=== PATIENT | female | born 1955 | race Caucasian/White ===

== ENCOUNTER 2020-05-10 13:42 | Outpatient (CLI) | payer MEDICARE, SELFPAY ==
--- NOTE | ~2020-05-10 | MM_ITS ---
EXAMINATION: MM screening kizzy BI w greg HISTORY: Screening TECHNIQUE: Craniocaudal and mediolateral oblique 3-D tomosynthesis images were obtained and synthetic 2-D images were generated. CAD analysis was submitted and interpreted. COMPARISON: Comparison to multiple prior studies sequentially, with oldest reviewed study dated 10/04 with. BREAST PARENCHYMAL COMPOSITION: There are scattered areas of fibroglandular density. FINDINGS: There is no evidence of suspicious mass, calcification, or architectural distortion to sugg est malignancy in either breast. There has been no suspicious interval change. IMPRESSION: 1. No mammographic evidence of malignancy. 2. Recommend routine screening mammography in one year. BI-RADS Category 1: Negative Reviewed, dictated and finalized at location A. ESSOR OF COUNSELING
--- NOTE | ~2020-05-10 | DEXA_ITS ---
Bone Density Report Name: Marlene Gracia Age: 64 Sex: Female Ethnicity: White Date of : 1955 Indication: osteopenia; parental hip fracture; height loss; Referring Provider: Casie Canchola Study: Bone densitometry was performed. Exam Date: May 10, 2020 Accession number: [id number] Bone Density: Region BMD T-score Z-score Classification AP Spine (L1-L4) 0.868 -1.6 0.3 Osteopenia Femoral Neck (Left) 0.738 -1.0 0.6 Normal Total Hip (Left) 0.852 -0.7 0.6 Normal Total Hip Bilateral Avg 0.832 -0.9 0.5 Normal Femoral Neck (Right) 0.676 -1.6 0.1 Osteopenia Total Hip (Right) 0.812 -1.1 0.3 Osteopenia World Health Organization criteria for BMD impression classify patients as: Normal (T-score at or above -1.0), Osteopenia (T-score between -1.0 and -2.5), or Osteoporosis (T-score at or below -2.5). 10-year Fracture Risk(1): Major Osteoporotic Fracture 17% Hip Fracture 1.6% Reported Risk Factors: [place] (), Neck BMD=0.676, BMI=25.8, parental fracture (1) FRAX(R) Version 3.08. Fracture probability calculated for an untreated patient. Fracture probability may be lower if the patient has received treatment. Previous Exams: Region Exam Age BMD T-score BMD Change BMD Change Date g/cm2 vs Baseline vs Previous AP Spine(L1-L4) 05/10/2020 64 0.868 -1.6 -0.091(-9.5%)# 0.059(7.3%)* 06/29/2014 59 0.808 -2.2 -0.150(-15.7%) -0.003(-0.4%)# 07/18/2009 54 0.812 -2.1 -0.147(-15.3%) -0.147(-15.3%) 01/15/2006 50 0.959 -0.8 Total Hip(Left) 05/10/2020 64 0.852 -0.7 -0.069(-7.5%)# -0.020(-2.2%) 06/29/2014 59 0.871 -0.6 -0.049(-5.3%)# 0.003(0.3%)# 07/18/2009 54 0.869 -0.6 -0.052(-5.6%)* -0.052(-5.6%)* 01/15/2006 50 0.920 -0.2 Total Hip(Right) 05/10/2020 64 0.812 -1.1 -0.100(-10.9%) -0.020(-2.4%) 06/29/2014 59 0.833 -0.9 -0.079(-8.7%)# -0.019(-2.3%)# 07/18/2009 54 0.852 -0.7 -0.060(-6.6%)* -0.060(-6.6%)* 01/15/2006 50 0.912 -0.2 *Denotes significance at 95% confidence level, LSC for AP Spine = 0.022 g/cm2, LSC for Total Hip = 0.027 g/cm2 Clinical Information Provided by Patient: Parent has had a hip fracture Has used the following medications: Vitamin D, Calcium Patient maximum height was 67 Menopause Age: 50 Drinks caffeinated beverages Onset of menses at age 12 Number of children 4 Impression: The patient has low bone mass, based on the Total Spine T-score. The pat
== END 2020-05-10 13:43 | disposition home or self-care (01) ==
LOC: ANHIMG 13:46
PROVIDERS: PCP Family Medicine; Visit Provider Family Medicine
DX: Z12.31 Encounter for screening mammogram for malignant neoplasm of breast (principal); Z78.0 Asymptomatic menopausal state; M85.89 Other specified disorders of bone density and structure, multiple sites
CPT/HCPCS: 77063; 77067; 77080

== ENCOUNTER → 2020-10-30 13:21 | Outpatient (CLI) | payer MEDICARE, SELFPAY ==
--- NOTE | ~2020-10-30 | XR_ITS ---
XR hand LT min 3V DATE: 10/30/2020 13:53 INDICATION: Hand pain TECHNIQUE: 3 views COMPARISON: None FINDINGS: Diffuse osteopenia. There is periarticular osteoarthritis including joint space narrowing at the triscaphe joint, promine nt hypertrophic osteoarthritic change at the first carpometacarpal joint and mild osteoarthritis invo lving the interphalangeal joints. IMPRESSION: Polyarticular osteoarthritis Osteopenia Reviewed, dictated and finalized at location A.
--- NOTE | ~2020-10-30 | XR_ITS ---
XR hand RT min 3V DATE: 10/30/2020 13:53 INDICATION: Right hand pain TECHNIQUE: 3 views COMPARISON: None FINDINGS: Diffuse osteopenia. Polyarticular osteoarthritis, including triscaphe joint, particularly the first carpometacarpal joint , in addition to the first metacarpophalangeal and multiple interphalangeal joints. No fracture or dislocation, periosteal reaction or bone destruction. IMPRESSION: Polyarticular osteoarthritis Osteopenia Reviewed, dictated and finalized at location A.
== END ==
PROVIDERS: PCP Family Medicine; Visit Provider Family Medicine
DX: M18.0 Bilateral primary osteoarthritis of first carpometacarpal joints (principal); M19.042 Primary osteoarthritis, left hand; M19.041 Primary osteoarthritis, right hand
CPT/HCPCS: 73130

== ENCOUNTER 2020-12-16 18:38 | Emergency (ER) | payer MEDICARE, SELFPAY ==
[2020-12-16 18:46] VITALS: BP 137/74; PULSE 82; RESP 16; TEMP 37; O2SAT 98
--- NOTE | 2020-12-16 18:56 | ED.URI ---
HPI - URI/Sore Throat General Chief Complaint: Upper Respiratory Infection Stated Complaint: sore throat Time Seen by Provider: 12/16/20 18:52 Source: patient, RN notes reviewed and old records reviewed Mode of arrival: ambulatory Limitations: no limitations History of Present Illness HPI Narrative: 65 year old female who presents to [facility] care with complaints of sore throat and hoarseness for the past 4- 5 days. She states that she has a scratchy throat and discomfort with swallowing. Patient reports no ear pain or any noted cough, denies any facial pressure or headache. Patient states that she had a fever one night earlier in the week of 100.8 but has had no fever since. Patient states that she has been taking Advil but has not been taking any antihistamines or decongestants. MD elicited complaint: sore throat and other (hoarseness) Exacerbating factors: swallowing Relieving factors: NSAID Associated symptoms: fever, rhinorrhea and sore throat Treatments prior to arrival: ibuprofen Related Data Allergies Allergy/AdvReac Type Severity Reaction Status Date / Time No Known Allergies Allergy Mild Verified 10/06/20 14:36 Review of Systems Review of Systems: Narrative: CONSTITUTIONAL: Denies fever, chills, or sweats presently, one evening of fever of 100.8F early in week none since EYES: Denies visual changes, redness, or discharge. ENT: Positive for rhinorrhea,sinus congestion, sore throat, no otalgia,hoarseness CARDIOVASCULAR: Denies chest pain, palpitations, or edema. RESPIRATORY: Denies cough or dyspnea. GASTROINTESTINAL: Denies abdominal pain, nausea, vomiting, or diarrhea. GENITOURINARY: Denies dysuria or hematuria. SKIN: Denies rash or itching. MUSCULOSKELETAL: Denies back pain, joint pain, or myalgia. NEUROLOGIC: Denies headache, numbness, or weakness. PSYCHIATRIC: Denies anxiety or depression. All systems reviewed & are unremarkable except as noted in HPI and below PMFSH Past Medical History Medical History (Updated 12/16/20 @ 19:37 by Marlene Christensen NP) Elevated cholesterol Hepatitis C antibody test negative (11/29/16) History of screening mammography (~04/17/12) Hypertension Normal colonoscopy (~03/29/09) Surgical History Surgical History History of tonsillectomy Family History Family History Mother Hypertension Family history of elevated blood lipids Father Family history of elevated blood lipids Grandparent Cerebrovascular accident Family history of lung cancer Social History Social History (Updated 12/16/20 @ 19:19 by Marlene Christensen NP) Smoking status: Never smoker Alcohol intake: current Substance use: never Living arrangements: with family Gender identity (if verbalized by the patient): Female Comments At time of signature, agree with nursing past medical, surgical, social and family history. There is no relevant family history pertinent to the presenting complaint Exam Narrative: Exam Narrative: GENERAL: Well-appearing, well-nourished, and in no acute distress. HEAD: Normocephalic, atraumatic. EYES: PERRLA and EOMI. ENT: Nares mild redness with clear rhinorrhea no epistaxis. Mucous membranes moist.TM's normal with good light reflex, Throat mild redness with no lesions or exudates, no tonsils. post nasal drainage noted. NECK: Supple. no lymphadenopathy CHEST: Clear to auscultation. No respiratory distress. no cough SAO2 98% on room air HEART: Regular rate and rhythm. No murmur heard. Normal peripheral pulses. ABDOMEN: Soft, nontender, nondistended, normal active bowel sounds. EXTREMITIES: Normal range of motion. No edema. SKIN: Warm, dry, no rash. NEURO: No focal deficits. Alert and oriented x3. Course Vital Signs Vital signs: Vital Signs Temperature 37.0 C 12/16/20 18:46 Pulse Rate 82 12/16/20 18:46 Respiratory Rate 16 12/16/20 18:46 Blood Pressu
== END 2020-12-16 19:15 | disposition home or self-care (01) ==
PROVIDERS: Emergency Provider Registered Nurse; PCP Family Medicine
DX: J06.9 Acute upper respiratory infection, unspecified (principal); J02.9 Acute pharyngitis, unspecified; E78.00 Pure hypercholesterolemia, unspecified; I10 Essential (primary) hypertension
CPT/HCPCS: 87081; 87880; 99213; G0463

== ENCOUNTER → 2022-06-14 10:51 | Outpatient (CLI) | payer MEDICARE, SELFPAY ==
--- NOTE | ~2022-06-14 | XR_ITS ---
Left Knee Technique: AP, lateral, not, and sunrise views were obtained. Clinical History: Pain Findings: No fracture or dislocation is seen. Osseous alignment is anatomic. Moderate osteophyte form ation noted at the medial joint line. Minimal patellar and lateral joint line spurring noted. Soft ti ssues are unremarkable. No joint effusion is seen. Impression: Mild degenerative change of the knee, as detailed above. Reviewed, dictated and finalized at location M. CTOR OF STUDENT LIFE Impression: Mild degenerative change of the knee, as detailed above.
== END ==
PROVIDERS: PCP Nurse Practitioner; Visit Provider Nurse Practitioner
DX: M25.562 Pain in left knee (principal); R93.6 Abnormal findings on diagnostic imaging of limbs
CPT/HCPCS: 73564

== ENCOUNTER 2022-09-03 08:00 | Outpatient (RCR) | payer MEDICARE, SELFPAY ==
--- NOTE | 2022-07-11 18:52 | PTOPEVAL1 ---
Assessment and note entered by Jonathan Nowak, PT Evaluation Information Assessment Status Evaluation Diagnosis Pain in L knee Onset for over a month Subjective Information Patient reports she has been having L knee joint stating it is burning. Patient is having trouble with going up and down stairs and sleeping. Pain is also worst in the AM after being immobile for awhile and as she moves it feels better. Pain is non radiating. She reports she is active playing pickleball, is an active walker and does aerobics at the [facility]. Clinical Summary Marlene is a 67 year old female coming into the clinic for L knee pain. She has decreased knee range of motion and weaker quads compared to the R knee along with TONI hamstring tightness. Patient will work with physical therapy to address those deficits along with hip strengthening and modalities as needed for pain. These treatments will address the objective and functional deficits as defined above. The patient will be advanced safely and appropriately in order for the patient to progress towards his/her prior level of function. Additional exercises will be introduced and as well as a comprehensive home exercise program upon discharge, if needed, ?to ensure carryover of functional gains achieved in the clinic. This treatment plan has been reviewed and agreement upon by the patient.
--- NOTE | 2022-08-08 13:29 | PTOPREEVAL ---
Assessment and note entered by Jonathan Nowak, PT Evaluation Information Assessment Status Re-evaluation Diagnosis Pain in L knee Onset for over a month. Subjective Information Patient reports the knee some days will feel great and then she will overdo it and have severe 15/10 pain the next day. Examples are walking 3 miles with no warm up or doing any smaller walks in the days prior. Still reporting issues in balance and wanting to be more active, but needing guidance on how to progress correctly. Reported Pain Level Pain Score 0: Self Report Assessment PT Clinical Summary Marlene is a 67 year old female coming into the clinic with L knee pain. She has met her goals for sit to stands, knee range of motion, quad strength, and 1/2 of her hamstring length goals. Recommend continued physical therapy to work on getting patient back to a progressive walking program, pickleball, and [employer] classes. Plan of Care Interventions Electrical Stimulation,Gait Training,Hot Pack/Cold Pack,Manual Therapy,Neuro Re-education,Patient/ Caregiver Education,Therapeutic Activities, Therapeutic Exercise,Ultrasound Other Interventions taping PT Services Indicated Yes Treatment Frequency and 1-2x/wk for 8 visits Duration These treatments will address the objective and functional deficits as defined above. The patient will be advanced safely and appropriately in order for the patient to progress towards his/her prior level of function. Additional exercises will be introduced and as well as a comprehensive home exercise program upon discharge, if needed, ?to ensure carryover of functional gains achieved in the clinic. This treatment plan has been reviewed and agreement upon by the patient.
--- NOTE | 2022-08-26 09:04 | PCPTNOTE ---
Patient called & cancelled scheduled appointment this date due to being in the hospital.
--- NOTE | 2022-09-16 14:51 | PCPTNOTE ---
Patient did not show up for scheduled appointment this date.
--- NOTE | 2022-09-30 13:18 | PCPTNOTE ---
Admitting Provider: Attending Provider: Anel Scott NP Patient:Marlene Garcia Date of :1955 Patient has not returned for any further treatments since 09/03/2022, therefore she will be discharged at this time. Patient?s initial visit was on 07/10/2022 09:00 and she had a total of ____12____ visits with 2 no shows or cancelations The goals have been partially met. Thank you for referring this patient to [facility]. Please review, sign, date and return this discharge summary CHRISTOPHER. I have been updated about the patient's current status and I agree with discharge from the above service at this time. Referring Physician Date
== END 2022-10-01 11:22 | disposition home or self-care (01) ==
LOC: ANHPT 08:00
PROVIDERS: PCP Family Medicine; Visit Provider Nurse Practitioner
DX: M25.562 Pain in left knee (principal)
CPT/HCPCS: 97014; 97110; 97112; 97140; 97161; 97530; 99199; G0283

== ENCOUNTER 2023-08-27 13:55 | Emergency (ER) | payer MEDICARE, SELFPAY ==
--- NOTE | ~2023-08-27 | CT_ITS ---
EXAMINATION: CT brain wo con DATE: 08/27/2023 14:27 INDICATION: Head injury. TECHNIQUE: Computed tomography (CT) of the head was performed without intravenous contrast. The mA wa s adjusted according to patient size. Iterative reconstruction technique was employed. The dose-lengt h product was 681.00 mGy-cm. COMPARISON: None FINDINGS: There is no intracranial hemorrhage, acute infarction, or abnormal intracranial mass lesion . There are scattered areas of low attenuation in the cerebral white matter. The ventricles are lenin l in size. The orbits are normal. There is left periorbital soft tissue swelling. There is mild mucos al thickening in the paranasal sinuses. The mastoid air cells are normal. IMPRESSION: 1. Mild nonspecific cerebral white matter disease, which likely represents chronic small vessel ische grant disease. Reviewed, dictated and finalized at location A. IMPRESSION: 1. Mild nonspecific cerebral white matter disease, which likely represents buffer [place] citlali small vessel ischemic disease.
--- NOTE | ~2023-08-27 | XR_ITS ---
EXAMINATION: XR ankle RT min 3V DATE: 08/27/2023 14:31 INDICATION: Right ankle injury and pain. TECHNIQUE: 4 views of right ankle were obtained. COMPARISON: None. FINDINGS: Bone alignment is normal. There is a transverse fracture of distal fibula with medial aspec t of the fracture line 9 mm distal to the level of the tibial plafond. There is a chip fracture of di stal tip of fibula. There is mild midfoot osteoarthritis. There are enthesophytes at the posterior an d plantar aspects of calcaneal tuberosity. Ankle soft tissue swelling is noted. IMPRESSION: 1. Comminuted fracture of lateral malleolus. Reviewed, dictated and finalized at location A.
[2023-08-27 13:56] VITALS: BP 149/87; PULSE 71; RESP 16; TEMP 36.6; O2SAT 100
[2023-08-27 14:11] VITALS: BP 149/87; PULSE 78; RESP 16; TEMP 36.7; O2SAT 98
--- NOTE | 2023-08-27 14:40 | ED.FALL ---
HPI - Fall General Chief Complaint: Fall Stated Complaint: fall Time Seen by Provider: 08/27/23 13:57 History of Present Illness HPI Narrative: Patient is 68-year-old female who presents to the ER [place]. She struck her head on the ground and suffered a laceration to the lateral aspect of the left eyebrow. Additionally she has pain over the right lateral malleolus. No numbness or tingling to the foot. Patient cannot bear weight due to pain. No loss of consciousness. Tetanus shot up-to-date. Patient is not on any blood thinning medication. Related Data Allergies Allergy/AdvReac Type Severity Reaction Status Date / Time No Known Allergies Allergy Mild Verified 11/26/22 10:35 Review of Systems Review of Systems: All systems reviewed & are unremarkable except as noted in HPI and below Constitutional: Constitutional: Reports no additional constitutional complaints ENT: Reports system reviewed and no additional complaints, except as documented Cardiovascular: Cardiovascular: Reports no additional cardiovascular complaints Respiratory: Respiratory: Reports no additional respiratory complaints Musculoskeletal: Musculoskeletal: Reports arthralgias, Reports joint swelling and Denies muscle cramps Integumentary/Breasts: Comments: Left eyebrow laceration. Neurologic: Reports system reviewed and no additional complaints, except as documented PMFSH Past Medical History Medical History Elevated cholesterol Hepatitis C antibody test negative (11/29/16) History of screening mammography (~04/17/12) Hypertension Normal colonoscopy (~03/29/09) Surgical History Surgical History History of tonsillectomy Family History Family History Mother Hypertension Family history of elevated blood lipids Father Family history of elevated blood lipids Grandparent Cerebrovascular accident Family history of lung cancer Social History Social History Smoking status: Never smoker Alcohol intake: current Substance use: never Lack of Transportation: No Lack of Food: Never True Current Housing: I Have Housing Concerned About Future Housing: No Difficulty Paying Gas/Electric Bills: No Difficulty Paying for Meds: No Currently Unemployed: No Education: Associate Degree Difficulty w/ Childcare or Family Care: No Living arrangements: with family Gender identity (if verbalized by the patient): Female Exam Narrative: GENERAL: Well-appearing, well-nourished, and in no acute distress. HEAD: Normocephalic, 4cm laceration left lateral eyebrow. EYES: PERRL and EOMI. ENT: Mucous membranes moist. NECK: Supple. CHEST: Clear to auscultation. No respiratory distress. HEART: Regular rate and rhythm. Normal peripheral pulses. ABDOMEN: Soft, nontender, nondistended EXTREMITIES: Normal range of motion. No edema. TTP right lateral malleolus. SKIN: Warm, dry, no rash. NEURO: Alert and oriented x3. PSYCH: Normal mood and affect. Course Course Emergency Course: Orthopedic surgery consulted. Service splint crutches with follow-up. Nonweightbearing. [place] for home. Patient of diagnosis and treatment plan. Vital Signs Vital signs: Vital Signs Temperature 97.8 F 08/27/23 13:56 Pulse Rate 71 08/27/23 13:56 Respiratory Rate 16 08/27/23 13:56 Blood Pressure 149/87 H 08/27/23 13:56 Pulse Oximetry 100 08/27/23 13:56 Oxygen Delivery Room Air 08/27/23 13:56 Temperature 97.8 F 08/27/23 16:01 Pulse Rate 78 08/27/23 16:01 Respiratory Rate 16 08/27/23 16:01 Blood Pressure 139/97 H 08/27/23 16:01 Pulse Oximetry 94 08/27/23 16:01 Oxygen Delivery Room Air 08/27/23 13:56 Procedures Laceration Laceration 1:
[2023-08-27] MEDS: LIDO 1%/EPINEPHRINE 1:100,000 20 ML VIAL 4 ML INFILTRATE (14:56)
[2023-08-27 15:02] VITALS: BP 142/80; PULSE 76; RESP 16; TEMP 36.6; O2SAT 98
[2023-08-27 16:01] VITALS: BP 139/97; PULSE 78; RESP 16; TEMP 36.6; O2SAT 94
== END 2023-08-27 16:30 | disposition home or self-care (01) ==
PROVIDERS: Emergency Provider Emergency Medicine; PCP Family Medicine
DX: S01.112A Laceration without foreign body of left eyelid and periocular area, initial encounter (principal); S82.61XA Displaced fracture of lateral malleolus of right fibula, initial encounter for closed fracture; I10 Essential (primary) hypertension; W01.0XXA Fall on same level from slipping, tripping and stumbling without subsequent striking against object, initial encounter
CPT/HCPCS: 12013; 29515; 70450; 73610; 99284

== ENCOUNTER 2023-11-20 14:53 | Outpatient (CLI) | payer MEDICARE, SELFPAY ==
--- NOTE | ~2023-11-20 | MM_ITS ---
EXAMINATION: MM screening kizzy BI w greg HISTORY: Screening TECHNIQUE: Craniocaudal and mediolateral oblique 3-D tomosynthesis images were obtained and synthetic 2-D images were generated. CAD analysis was submitted and interpreted. COMPARISON: 06/29/2014 BREAST PARENCHYMAL COMPOSITION: There are scattered areas of fibroglandular density. FINDINGS: There is no evidence of suspicious mass, calcification, or architectural distortion to sugg est malignancy in either breast. There has been no suspicious interval change. IMPRESSION: 1. No mammographic evidence of malignancy. 2. Recommend routine screening mammography in one year. BI-RADS Category 1: Negative Reviewed, dictated and finalized at location B.
== END 2023-11-20 14:54 | disposition home or self-care (01) ==
LOC: ANHIMG 14:54
PROVIDERS: PCP Family Medicine; Visit Provider Family Medicine
DX: Z12.31 Encounter for screening mammogram for malignant neoplasm of breast (principal)
CPT/HCPCS: 77063; 77067

== ENCOUNTER 2024-04-06 14:44 | Outpatient (CLI) | payer MEDICARE, SELFPAY ==
--- NOTE | ~2024-04-06 | DEXA_ITS ---
Bone Density Report Name: CARLITO HAYES Age: 68 Sex: Female Ethnicity: White Date of : 1955 Indication: osteopenia; Referring Provider: VERNA MA Study: Bone densitometry was performed. Exam Date: April 06, 2024 Accession number: [id number] Bone Density: Region BMD T-score Z-score Classification AP Spine(L1-L4) 0.830 -2.0 0.2 Osteopenia Femoral Neck (Left) 0.743 -1.0 0.9 Normal Total Hip (Left) 0.989 0.4 1.9 Normal Femoral Neck (Right) 0.705 -1.3 0.6 Osteopenia Total Hip (Right) 0.943 0.0 1.6 Normal Total Hip Mean 0.966 0.2 1.8 Normal World Health Organization criteria for BMD impression classify patients as: Normal (T-score at or above -1.0), Osteopenia (T-score between -1.0 and -2.5), or Osteoporosis (T-score at or below -2.5). 10-year Fracture Risk(1): Major Osteoporotic Fracture 9.5% Hip Fracture 1.3% Reported Risk Factors: [place] (), Neck BMD=0.705, BMI=28.6 (1) FRAX(R) Version 3.08. Fracture probability calculated for an untreated patient. Fracture probability may be lower if the patient has received treatment. Previous Exams: Region Exam Age BMD T-score BMD Change BMD Change Date g/cm2 vs Baseline vs Previous AP Spine (L1-L4) 04/06/2024 68 0.830 -2.0 0.021 (2.7%) -0.038 (-4.4%) 05/10/2020 64 0.868 -1.6 0.059 (7.3%)* 0.059 (7.3%)* 06/29/2014 59 0.808 -2.2 Total Hip(Left) 04/06/2024 68 0.989 0.4 0.118 (13.5%)* 0.137 (16.1%)* 05/10/2020 64 0.852 -0.7 -0.020 (-2.2%) -0.020 (-2.2%) 06/29/2014 59 0.871 -0.6 Total Hip(Right) 04/06/2024 68 0.943 0.0 0.131 (16.1%)* 0.131 (16.1%)* 05/10/2020 64 0.812 -1.1 *Denotes significance at 95% confidence level, LSC for AP Spine = 0.022 g/cm2, LSC for Total Hip = 0.027 g/cm2 Clinical Information Provided by Patient: Has used the following medications: Vitamin D, Calcium Patient maximum height was 67 Menopause Age: 50 Drinks caffeinated beverages Onset of menses at age 12 Number of children 4 Impression: The patient has low bone mass, based on the Total Spine T-score. The patient has an estimated ten-year risk of hip fracture of 1.3% and an estimated ten-year risk of major fracture of 9.5%, based on the WHO FRAX algorithm. The BMD for the AP Spine (L1-L4) decreased, changing by -4.4% since the last DXA exam. Discussion: BONE DENSITY IS LOW AT ONE OR MORE SKELETAL SITES. This patient's lowest
== END 2024-04-06 14:45 | disposition home or self-care (01) ==
LOC: ANHIMG 14:47
PROVIDERS: PCP Family Medicine; Visit Provider Family Medicine
DX: M85.89 Other specified disorders of bone density and structure, multiple sites (principal)
CPT/HCPCS: 77080

== ENCOUNTER 2024-04-21 08:36 | Outpatient (CLI) | payer MEDICARE, SELFPAY ==
--- NOTE | ~2024-04-21 | US_ITS ---
Left neck posterior supraclavicular area ULTRASOUND Ordering provider: Casie Canchola DO History: . R22.1 - Localized swelling, mass and lump, neck . Comparison: None. FINDINGS/impression: Multiple lymph nodes are seen with the largest measures 2 x 1.2 x 1.2 cm. Loss of normal appearances with Increased vascularity is noted. Differential include inflammatory and infiltrative process. Clin ical correlation advised. Reviewed, dictated and finalized at location A. STIGATION DIVISION SERGEANT
== END 2024-04-21 08:37 | disposition home or self-care (01) ==
LOC: GOSHIMG 08:36
PROVIDERS: PCP Family Medicine; Visit Provider Family Medicine
DX: R59.0 Localized enlarged lymph nodes (principal)
CPT/HCPCS: 76536

== ENCOUNTER 2024-04-29 08:44 | Outpatient (CLI) | payer MEDICARE, SELFPAY ==
--- NOTE | ~2024-04-29 | CT_ITS ---
EXAMINATION: CT soft tissue neck wo con DATE: 04/29/2024 08:55 INDICATION: Localized swelling, mass and lump, neck. TECHNIQUE: Computed tomography (CT) of the neck was performed without intravenous contrast. Automated exposure control and iterative reconstruction technique were employed. The dose-length product was 3 55.83 mGy-cm. COMPARISON: Ultrasound 04/21/2024 FINDINGS: There is mild scarring at the lung apices. There are numerous enlarged left internal jugula r and spinal accessory chain lymph nodes. For example, a left spinal accessory chain node measures 1. 3 x 1.7 cm. There is severe cervical spondylosis. IMPRESSION: 1. Left-sided cervical lymphadenopathy, which may be reactive lymphadenopathy, lymphoma, or metastati c disease. Ultrasound-guided core needle biopsy is recommended. Reviewed, dictated and finalized at location A. TEACHER IMPRESSION: 1. Left-sided cervical lymphadenopathy, which may be reactive lymphadenopathy, lymphoma, or metastatic disease. Ultrasound-guided core needle biopsy is recomm ended.
== END 2024-04-29 08:45 | disposition home or self-care (01) ==
LOC: GOSHIMG 08:44
PROVIDERS: PCP Family Medicine; Visit Provider Family Medicine
DX: R22.1 Localized swelling, mass and lump, neck (principal)
CPT/HCPCS: 70490

== ENCOUNTER 2024-05-28 09:09 | Outpatient (CLI) | payer MEDICARE, SELFPAY ==
--- NOTE | ~2024-05-28 | US_ITS ---
EXAMINATION: US biopsy lymph node DATE: 05/28/2024 10:14 INDICATION: Localized left supraclavicular enlarged lymph nodes TECHNIQUE: The procedure including the risks and benefits was discussed with the patient. Risks discu ssed included bleeding and infection. The patient understood the risks and agreed to proceed. The sk in overlying the left supraclavicular region was prepped and draped in usual sterile fashion. Anesth etic was administered with 1% lidocaine subcutaneously. An 18 gauge core biopsy needle was advanced under continuous ultrasound observation to the lesion of interest. 8 core biopsy specimens were obta ined, 5 placed in RPMI media and 3 in formalin. The needle was removed and the entry site was cleane d and dressed. Post procedure ultrasound demonstrated no hemorrhage. FINDINGS: Ultrasound images demonstrate a 1.7 x 1.4 x 1.3 cm round very hypoechoic left supraclavicul ar mass. Subsequent images demonstrate the biopsy needle advanced into the mass. IMPRESSION: 1. Successful Ultrasound-guided biopsy of a 1.7 x 1.4 x 1.3 similar left supraclavicular mass suspici ous for a pathologically enlarged lymph node which could be due to reactive lymphadenopathy, lymphoma or metastatic disease. Reviewed, dictated and finalized at location A. IO SET UP WORKER IMPRESSION: 1. Successful Ultrasound-guided biopsy of a 1.7 x 1.4 x 1.3 similar left suprac lavicular mass suspicious for a pathologically enlarged lymph node which could be due to reactive lymphadenopathy, lymphoma or metastatic disease.
== END 2024-05-28 09:10 | disposition home or self-care (01) ==
PROVIDERS: PCP Family Medicine; Visit Provider Family Medicine
DX: R59.0 Localized enlarged lymph nodes (principal)
CPT/HCPCS: 38505; 76942; 88184; 88305; 88342

== ENCOUNTER 2024-07-14 10:58 | Outpatient (CLI) | payer MEDICARE, SELFPAY ==
--- NOTE | ~2024-07-14 | US_ITS ---
EXAMINATION: US biopsy lymph node DATE: 07/14/2024 12:59 INDICATION: Asymptomatic lymphadenopathy TECHNIQUE: The procedure including the risks, benefits, and alternatives was discussed with the patie nt. Risks discussed included bleeding and infection. The patient understood the risks and agreed to proceed. The skin overlying the left lateral neck was prepped and draped in usual sterile fashion. Anesthetic was administered with 1% lidocaine subcutaneously. A 13 gauge introducer was advanced into the morphologically suspicious cervical lymph node within lev el V. Once appropriate placement was confirmed with ultrasound imaging, a 14-gauge biopsy device was advanced into this lymph node and multiple specimens were obtained. 4 specimens were placed into RPMI , with 2 specimens into formalin. Attention was then turned to the morphologically suspicious lymph node within level IV. After appropr iate instillation of 1% lidocaine without epinephrine, a 13-gauge introducer was then advanced into t he morphologically suspicious cervical lymph node within level IV. Once appropriate placement was con firmed with ultrasound imaging, a 14-gauge biopsy device was advanced into the body of the lymph node and multiple specimens were obtained. 5 specimens were placed into RPMI, and 3 specimens into formalin. All devices were then removed. The entry site was cleaned and dressed. There were no immediate complications. FINDINGS: Multiple morphologically suspicious lymph nodes, some pathologically enlarged with central decreased echogenicity suggesting possible necrosis within the cervical chain of the left neck. IMPRESSION:. Technically successful ultrasound-guided biopsy of two lymph nodes within the cervical chain of the l eft neck, as detailed above. Pathology is pending Reviewed, dictated and finalized at location A. [employer] IMPRESSION:. Technically successful ultrasound-guided biopsy of two lymph nodes within the c ervical chain of the left neck, as detailed above. Pathology is pending
--- OUTSIDE RECORDS SUMMARY | 2024-07-14 12:14 | XMS_ITS | Clinical Summary ---
Author Organization [facility] Address [address] [place] [address] Care Team Providers Care Data Software Engineer Name Role Phone Unavailable Primary Care Provider Unavailabl e Source Comments [facility],non-owned Affiliates and Associated Physician Practices is amultiple site organization consisting of ambulatory clinics and hospital sitesin [place], [place], [place] and [place]. This disclosure is being madepursuant to the Care Everywhere program and may not contain all information available regarding this patient. Last updated 18.[facility] Encounters Date Type Department Care Team Description 06/02/2024 Lab Requisition [facility] - Pathology Lab [address] [place] [address] Jordan Odell MD Illness, unspecified 05/28/2024 Lab Requisition [facility] - Pathology Lab [address] [place] [address] Jordan Odell MD Localized swelling, mass and lump, neck from Last 3 Months Social History Tobacco Use Types Packs/Day Years Used Date Smoking Tobacco: Never Assessed Sex and Gender Information Value Date Recorded Sex Assigned at Not on file Gender Identity Not on file Sexual Orientation Not on file Plan of Treatment Health Maintenance Due Date Last Done Comments BONE DENSITY TESTING 1955 COLOGUARD (AGES 45-75) - COL ON CA SCREENING 1955 COLON MONITORING 1955 COLONOSCOPY - COLON CA SCREENING 1955 CT COLONOGRAPHY - COLON CA SCREENING 1955 Colorectal Cancer Screening 1955 FIT - COLON CA SCREENING 1955 FLEX SIG - COLON CA SCREENING 1955 LIPID TESTING 1955 MAMMOGRAM 1955 HEPATITIS C SCREENING 05/12/1971 DTAP/TDAP/TD VACCINES (1 - Tdap) 1972 PNEUMOCOCCAL VACCINE 50+ (1 of 1 - PCV) 2003 ZOSTER VACCINE (1 of 2) 2003 COVID-19 VACCINE ( - 2023-2 5 season) 2024 INFLUENZA VACCINE (#1) 2024 DEPRESSION SCREENING 06/16/2024 MEDICARE AWV ? CALENDAR YEAR 2024 Respiratory Syncytial Virus (RSV) Vaccine Pt: or over 60 yrs (1 - 1-dose 75+ series) 2028 HEPATITIS B VACCINE Aged Out No longe r eligible based on patient's age to complete this topic HIB VACCINE Aged Out No longer eligi ble based on patient's age to complete this topic HPV VACCINE Aged Out No longer eligi ble based on patient's age to complete this topic MENINGOCOCCAL (Group B) VACCINE Aged Out No longer eligible based on patient's age to complete this topic MENINGOCOCCAL VACCINE Aged Out No lindsey norm eligible based on patient's age to complete this topic Procedures Procedure Name Priority Date/Time Associated Diagnosis Comments PATHOLOGY TISSUE Routine 05/28/2024 10:1 3 AM DYNAMITE PACKING MACHINE OPERATOR Illness, unspecified FLOW CYTOMETRY TISSUE PANEL Routine 05/28/2024 9:41 AM DYNAMITE PACKING MACHINE OPERATOR Localized swelling, mass and lump, neck from Last 3 Months Results * PATHOLOGY TISSUE (05/28/2024 10:13 AM DYNAMITE PACKING MACHINE OPERATOR) Case Report Surgical Pathology Report ? Case: [id number] ? Authorizing Provider: ??Jordan Odell ? Collected: ? 05/28/2024 10:13 AM ? MD Mauro ? Ordering Location: ? [facility] - ??Received: ?06/02/2024 04:21 PM ? Pathology Lab ? Pathologist: ? Pardeep Cope MD ? Specimen: ?Lymph Node Biopsy ? 06/04/2024 4:09 PM [facility] Final Diagnosis Left supraclavicular lymph node, biopsy core: - Sclerosis and mixture of T- and B-cells (see microscopic description) 06/04/2024 4:09 PM [facility] Microscopic Description and Comment The H&E stained core biopsy shows small cores containing some sclerotic areas, but also areas with predominantly small lymphocytes. Sheets of large lymphoid cells, necrosis, or Cedric-Jalen cells are not appreciated. Immunohistochemistry performed at [facility] shows general negativity for CD68, S100, MCK, MSA, and CD34, excluding the possibilities of a histiocytic/Langerhan s cell, epithelial, muscle, or vascular lesion. Vimentin is positive which would be expected. Hematopoietic stains performed at the [facility] Laboratory show a mixture of CD45+,CD3+ T-lymphocytes and CD20+ B-lymphocytes with no significant CD138+ plasma cell population. PAX-5 does no show weakly staining large lymphoid cells that would suggest Cedric-Jalen cells. CD10, BCL6, MUM-1, and cyclin D1 are essentially negative. In situ hybridization for kappa and lambda mRNA show only rare staining plasma cells. A re-biopsy of the mediastinal mass is recommended to assess for the possibility of classic Hodgkin lymphoma or a mediastinal large B-cell lymphoma. CD30 and CD15 are pending, and results will be issued in an addendum 06/04/2024 4:09 PM [facility] Clinical History Mediastinal mass. 06/04/2024 4:09 PM [facility] Materials Received Received are 15 slide(s) and 1 block labeled [id number] along with a copy of the outside pathology report. [place] [address]. All original materials are returned to the referring institution, along with a copy of our final report. 06/04/2024 4:09 PM [facility] Addendum 1 CD30 and CD15 staining cannot be fully assessed by due to the loss of tissue in deeper sections. No overtly CD30+/CD15+ large cells are appreciated, but a repeat biopsy with larger pieces of tissue is necessary for a diagnosis. 06/04/2024 4:09 PM [facility] Addendum electronically signed by Pardeep Cope MD on 06/04/2024 at 4:09 PM Pathologist Location at [facility] 06/04/2024 4:09 PM [facility] Disclaimer The performance characteristics of all immunohistochemical and indirect immunofluorescence stains (if any) cited in this report were determined by the Histopathology Laboratory of [facility]. Some of these tests were developed by our own laboratory and have not been cleared or approved by the US Food and Drug Administration. The FDA does not require this test to go through premarket FDA review. These tests are used for clinical purposes. They should not be regarded as investigational or for research. This laboratory is certified under the Clinical Laboratory Improvement Amendments (CLIA) as qualified to perform high complexity clinical laboratory testing. This case has been personally reviewed and interpreted by the attending (teaching) pathologist. 06/04/2024 4:09 PM DYNAMITE PACKING MACHINE OPERATOR [facility] Embedded Images 06/04/2024 4:09 PM DYNAMITE PACKING MACHINE OPERATOR [facility] Pathology/Cytolo gy BIOPSY OF LYMPH NODE / Unknown 05/28/2024 10:13 AM DYNAMITE PACKING MACHINE OPERATOR 06/02/2024 4:21 PM DYNAMITE PACKING MACHINE OPERATOR Jordan Odell MD LAB - PATHO LOGY/CYTOLOGY ORDERABLES [facility] [address] [facility] [place] [address], [place] [phone] * FLOW CYTOMETRY TISSUE PANEL (05/28/2024 9:41 AM DYNAMITE PACKING MACHINE OPERATOR) Case Report Flow Cytometry ?Case: [id number] ? Authorizing Provider: ??Jordan Odell ? Collected: ? 05/28/2024 09:41 AM ? MD Mauro ? [facility]ing Location: ? [facility] - ??Received: ?05/28/2024 01:57 PM ? Pathology Lab ? Pathologist: ? Pardeep Cope MD ? Specimen: ?Lymph Node, Left Supraclavicular ? 05/28/2024 4:27 PM [facility] Final Diagnosis Lymph node, flow cytometry: - Mostly non-viable events, too few cells for meaningful analysis 05/28/2024 4:27 PM [facility] Flow Cytometry Interpretation Viability: 0.0% B-cells: no significant population, the rare events present appear kappa light chain restricted; however, due to the very low viability and hypocellularity a firm conclusion cannot be rendered. Tissue sections are pending. T-cells: no significant population A cytospin prepared from the flow cytometry specimen has been reviewed for quality control expert purposes. No viable cells are seen. 05/28/2024 4:27 PM [facility] Flow Cytometry Results Differential Result Comment Flow Cell Count /uL 1,100 Total Viability % 0.0 Lymphocytes % 71 Dim CD45 Region % 1 Monocytes % 11 Granulocytes % 18 05/28/2024 4:27 PM [facility] Reason for test Localized swelling, mass and lump, neck 784.2 05/28/2024 4:27 PM [facility] Client Specimen ID # [id number] 05/28/2024 4:27 PM [facility] Number of markers 16 were performed. A-2 Flow CD3 A-4 Flow CD10 A-6 Flow CD20 A-7 Flow CD23 A-12 Flow CD2 A-13 Flow CD4 A-16 Flow CD1a A-3 Flow CD5 A-5 Flow CD19 A-8 Flow CD34 A-9 Flow CD45 A-14 Flow CD7 A-15 Flow CD8 A-17 Flow CD30 A-10 [place]+CD19+ A-11 Lambda+CD19+ 05/28/2024 4:27 PM [facility] Pathologist Location at [facility] 05/28/2024 4:27 PM [facility] Disclaimer Test performed at [facility], [address] [place], [place], [address]. *The established laboratory minimum viability is 70%. Values below the minimum may result in the failure to find an abnormal population of cells. This test was developed and its performance characteristics determined by the Flow Cytometry Laboratory. It has not been cleared by the [place] Food and Drug Administration (FDA). The FDA has determined that such clearance or approval is not necessary. This test is used for clinical purposes. It should not be regarded as investigational or for research. This laboratory is regulated under the Clinical Laboratory Improvement Amendments of 1998 (CLIA) as a qualified to perform high complexity clinical testing. 05/28/2024 4:27 PM [facility] Embedded Images 4:27 PM [facility] Pathology/Cytolo gy ENTIRE LYMPH NODE / Unknown 05/28/2024 9:41 AM DYNAMITE PACKING MACHINE OPERATOR 05/28/2024 1:57 PM DYNAMITE PACKING MACHINE OPERATOR Jordan Odell MD LAB - PATHO LOGY/CYTOLOGY ORDERABLES Performing Organization Address City/State/[facility] Co de Phone Number [facility]. [address] [phone] from Last 3 Months Marlene Garcia Personal/Famil y Self 1955
--- OUTSIDE RECORDS SUMMARY | 2024-07-14 12:14 | XMS_ITS | Encounter Summary ---
Author Organization [facility] Address [address] [place] [address] Care Team Providers Care Vp Human Resources Name Role Phone Unavailable Primary Care Provider Unavailabl e Encounter Details Date Type Department Care Team (Late st Contact Info) Description 06/02/2024 Lab Requisition [facility] - Pathology Lab [address] [place] [id number] Jordan Odell MD [address] [place] [address] Illness, unspecified Social History Tobacco Use Types Packs/Day Years Used Date Smoking Tobacco: Never Assessed Sex and Gender Information Value Date Recorded Sex Assigned at Not on file Gender Identity Not on file Sexual Orientation Not on file documented as of this encounter Plan of Treatment Not on file documented as of this encounter Procedures Procedure Name Priority Date/Time Associated Diagnosis Comments PATHOLOGY TISSUE Routine 05/28/2024 10:1 3 AM PLASTERER FOREMAN Illness, unspecified documented in this encounter Results * PATHOLOGY TISSUE (05/28/2024 10:13 AM PLASTERER FOREMAN) Case Report Surgical Pathology Report ? Case: [id number] ? Authorizing Provider: ??Jordan Odell ? Collected: ? 05/28/2024 10:13 AM ? MD Mauro ? [facility] ??Received: ?06/02/2024 04:21 PM ? Pathology Lab ? Pathologist: ? Pardeep Cope MD ? Specimen: ?Lymph Node Biopsy ? 06/04/2024 4:09 PM [facility] Final Diagnosis Left supraclavicular lymph node, biopsy core: - Sclerosis and mixture of T- and B-cells (see microscopic description) 06/04/2024 4:09 PM [facility] Microscopic Description and Comment The H&E stained core biopsy shows small cores containing some sclerotic areas, but also areas with predominantly small lymphocytes. Sheets of large lymphoid cells, necrosis, or Cedric-Jalen cells are not appreciated. Immunohistochemistry performed at [facility] shows general negativity for CD68, S100, MCK, MSA, and CD34, excluding the possibilities of a histiocytic/Langerhan s cell, epithelial, muscle, or vascular lesion. Vimentin is positive which would be expected. Hematopoietic stains performed at the [facility] Laboratory show a mixture of CD45+,CD3+ T-lymphocytes [...] issued in an addendum 06/04/2024 4:09 PM [facility] Clinical History Mediastinal mass. 06/04/2024 4:09 PM [facility] Materials Received Received are 15 slide(s) and 1 block labeled [id number] along with a copy of the outside pathology report. [place] [address]. All original materials are returned to the referring institution, along with a copy of our final report. 06/04/2024 4:09 PM [facility] Addendum 1 CD30 and CD15 staining cannot be fully assessed by due to the loss of tissue in deeper sections. No overtly CD30+/CD15+ large cells are appreciated, but a repeat biopsy with larger pieces of tissue is necessary for a diagnosis. 06/04/2024 4:09 PM [facility] Addendum electronically signed by Pardeep Cope MD on 06/04/2024 at 4:09 PM Pathologist Location at [facility] 06/04/2024 4:09 PM [facility] Disclaimer The performance characteristics of all immunohistochemical and indirect immunofluorescence stains (if any) cited in this report were determined by the Histopathology Laboratory of [facility]. Some of these tests were developed by [...] the attending (teaching) pathologist. 06/04/2024 4:09 PM PLASTERER FOREMAN [facility] PATH[facility] Embedded Images 06/04/2024 4:09 PM PLASTERER FOREMAN [facility] PATH[facility] Pathology/Cytolo gy BIOPSY OF LYMPH NODE / Unknown 05/28/2024 10:13 AM PLASTERER FOREMAN 06/02/2024 4:21 PM PLASTERER FOREMAN Jordan Odell MD LAB - PATHO LOGY/CYTOLOGY ORDERABLES [facility] [address] [phone] documented in this encounter Visit Diagnoses Diagnosis Illness, unspecified documented in this encounter
--- OUTSIDE RECORDS SUMMARY | 2024-07-14 12:14 | XMS_ITS | Referral Summary ---
Author Organization [facility] Address [address] [place] [address] Care Team Providers Care Space Technologist Name Role Phone Unavailable Primary Care Provider Unavailabl e Source Comments [facility],non-owned Affiliates and Associated Physician Practices is amultiple site organization consisting of ambulatory clinics and hospital sitesin [place], [place], [place] and [place]. This disclosure is being madepursuant to the Care Everywhere program and may not contain all information available regarding this patient. Last updated 18.[facility] Encounters Date Type Department Care Team Description 06/02/2024 Lab Requisition [facility] - Pathology Lab [address] [place] [address] Jordan Odell MD Illness, unspecified 05/28/2024 Lab Requisition [facility] - Pathology Lab [address] [place] [address] Jordan Odell MD Localized swelling, mass and lump, neck from Last 3 Months Social History Tobacco Use Types Packs/Day Years Used Date Smoking Tobacco: Never Assessed Sex and Gender Information Value Date Recorded Sex Assigned at Not on file Gender Identity Not on file Sexual Orientation Not on file Plan of Treatment Not on file Procedures Procedure Name Priority Date/Time Associated Diagnosis Comments PATHOLOGY TISSUE Routine 05/28/2024 10:1 3 AM CUTTER TENDER Illness, unspecified FLOW CYTOMETRY TISSUE PANEL Routine 05/28/2024 9:41 AM CUTTER TENDER Localized swelling, mass and lump, neck from Last 3 Months Results * PATHOLOGY TISSUE (05/28/2024 10:13 AM CUTTER TENDER) Case Report Surgical Pathology Report ? Case: [id number] ? Authorizing Provider: ??Jordan Odell ? Collected: ? 05/28/2024 10:13 AM ? MD Mauro ? [facility] ? [facility] ??Received: ?06/02/2024 04:21 PM ? Pathology Lab ? Pathologist: ? Pardeep Cope, ? Specimen: ?Lymph Node Biopsy ? 06/04/2024 4:09 PM CUTTER TENDER [facility] Final Diagnosis Left supraclavicular lymph node, biopsy core: - Sclerosis and mixture of T- and B-cells (see microscopic description) 06/04/2024 4:09 PM [facility] Microscopic Description and Comment The H&E stained core biopsy shows small cores containing some sclerotic areas, but also areas with predominantly small lymphocytes. Sheets of large lymphoid cells, necrosis, or Cedric-Jalen cells are not appreciated. Immunohistochemistry performed at [facility] shows general negativity for CD68, S100, MCK, MSA, and CD34, excluding the possibilities of a histiocytic/Langerhan s cell, epithelial, muscle, or vascular lesion. Vimentin is positive which would be expected. Hematopoietic stains performed at the [facility] Laboratory show a mixture of CD45+,CD3+ T-lymphocytes [...] issued in an addendum 06/04/2024 4:09 PM [facility] Clinical History Mediastinal mass. 06/04/2024 4:09 PM [facility] Materials Received Received are 15 slide(s) and 1 block labeled [id number] along with a copy of the outside pathology report. [place] [address]. All original materials are returned to the referring institution, along with a copy of our final report. 06/04/2024 4:09 PM [facility] Addendum 1 CD30 and CD15 staining cannot be fully assessed by due to the loss of tissue in deeper sections. No overtly CD30+/CD15+ large cells are appreciated, but a repeat biopsy with larger pieces of tissue is necessary for a diagnosis. 06/04/2024 4:09 PM [facility] Addendum electronically signed by Pardeep Cope MD on 06/04/2024 at 4:09 PM Pathologist Location at [facility] 06/04/2024 4:09 PM [facility] Disclaimer The performance characteristics of all immunohistochemical and indirect immunofluorescence stains (if any) cited in this report were determined by the Histopathology Laboratory of [facility]. Some of these tests were developed [...] the attending (teaching) pathologist. 06/04/2024 4:09 PM [facility] Embedded Images 06/04/2024 4:09 PM [facility] Pathology/Cytolo gy BIOPSY OF LYMPH NODE / Unknown 05/28/2024 10:13 AM CUTTER TENDER 06/02/2024 4:21 PM CUTTER TENDER Jordan Odell MD LAB - PATHO LOGY/CYTOLOGY ORDERABLES [facility] [address] [place] [address], [facility] [[email or web address]] [phone] * FLOW CYTOMETRY TISSUE PANEL (05/28/2024 9:41 AM CUTTER TENDER) Case Report Flow Cytometry ?Case: [id number] ? Authorizing Provider: ??Jordan Odell ? Collected: ? 05/28/2024 09:41 AM ? MD Mauro ? Ordering Location: ? [facility] - ??Received: ?05/28/2024 01:57 PM ? Pathology Lab ? Pathologist: ? Pardeep Cope MD ? Specimen: ?Lymph Node, Left Supraclavicular ? 05/28/2024 4:27 PM [facility] Final Diagnosis Lymph node, flow cytometry: - Mostly non-viable events, too few cells for meaningful analysis 05/28/2024 4:27 PM [facility] Flow Cytometry Interpretation Viability: 0.0% B-cells: no significant population, the rare events present appear kappa light chain restricted; however, due to the very low viability and hypocellularity a firm conclusion cannot be rendered. Tissue sections are pending. T-cells: no significant population A cytospin prepared from the flow cytometry specimen has been reviewed for water quality tester purposes. No viable cells are seen. 05/28/2024 4:27 PM [facility] Flow Cytometry Results Differential Result Comment Flow Cell Count /uL 1,100 Total Viability % 0.0 Lymphocytes % 71 Dim CD45 Region % 1 Monocytes % 11 Granulocytes % 18 05/28/2024 4:[address] [facility] Reason for test Localized swelling, mass and lump, neck 784.2 05/28/2024 4:[address] [facility] Client Specimen ID # [id number] 05/28/2024 4:27 PM [facility] Number of markers 16 were performed. A-2 Flow CD3 A-4 Flow CD10 A-6 Flow CD20 A-7 Flow CD23 A-12 Flow CD2 A-13 Flow CD4 A-16 Flow CD1a A-3 Flow CD5 A-5 Flow CD19 A-8 Flow CD34 A-9 Flow CD45 A-14 Flow CD7 A-15 Flow CD8 A-17 Flow CD30 A-10 [place]+CD19+ A-11 Lambda+CD19+ 05/28/2024 4:27 PM [facility] Pathologist Location at [facility] 05/28/2024 4:27 PM [facility] Disclaimer Test performed at [facility], [address] [place] [address], [id number]. *The established laboratory minimum viability is 70%. [...] high complexity clinical testing. 05/28/2024 4:27 PM [facility] Embedded Images 4:27 PM [facility] Pathology/Cytolo gy ENTIRE LYMPH NODE / Unknown 05/28/2024 9:41 AM CUTTER TENDER 05/28/2024 1:57 PM CUTTER TENDER Jordan Odell MD LAB - PATHO LOGY/CYTOLOGY ORDERABLES [facility] [address] [place] [address], [facility] [[email or web address]] [phone] from Last 3 Months Marlene Garcia Personal/Famil y Self 1955
--- OUTSIDE RECORDS SUMMARY | 2024-07-14 12:14 | XMS_ITS | Clinical Summary ---
Author Organization [address] Address [address] [place] [phone] Care Team Providers Care Mandate Retail Service Merchandiser Name Role Phone Unknown, Notinfile Primary Care Provider Unavail able Allergies No known active allergies Medications atorvastatin (LIPITOR) 20 mg tablet Take 1 tablet (20 mg total) by mouth daily Active hydroCHLOROthiaz darrell 12.5 mg tablet 12/29/2023 Active losartan (COZAAR) 50 mg tablet Take 1 tablet (50 mg total) by mouth daily Active metoprolol XL (TOPROL-XL) 100 mg 24 hr tablet Take 1 tablet (100 mg total) by mouth daily Active sertraline (ZOLOFT) 50 mg tablet 12/29/2023 Active Active Problems No known active problems Social History Tobacco Use Types Packs/Day Years Used Date Smoking Tobacco: Never Assessed Comments Unknown Sex and Gender Information Value Date Recorded Sex Assigned at Not on file Legal Sex Female 1:41 AM HEARING AID FITTER Gender Identity Not on file Sexual Orientation Not on file Obstetrics History Last Filed Vital Signs Vital Sign Reading Time Taken Comments Blood Pressure 117/79 01/06/2024 2:39 PM CDT Pulse 60 01/06/2024 2:39 PM CDT Temperature 36.9 ??C (98.5 ??F) 01/06/2024 2:39 PM CD T Respiratory Rate 18 01/06/2024 2:39 PM CDT Oxygen Saturation 96% 01/06/2024 2:39 PM CDT Inhaled Oxygen Concentration - - Weight 81.2 kg (179 lb) 01/06/2024 2:39 PM CDT Height 170.2 cm (5' 7 ) 01/06/2024 2:39 PM CDT Body Mass Index 28.04 01/06/2024 2:39 PM CDT Plan of Treatment Health Maintenance Due Date Last Done Comments Breast Cancer Screening-Mammogram 1953 Colon Cancer Screening-Colonoscopy 1955 Depression Screening 1955 Fall Risk Assessment 1955 Hepatitis C Screening 1955 Osteoporosis Screening-Bone Density Scan 1953 Hepatitis B Screening 1971 Zoster Vaccine (2 of 3) 03/26/2016 01/30/20 16, 10/31/2015, 10/17/2015 Well Visit 65+ 2018 Covid-19 Vaccine (4 - 2023-2 5 season) 2024 04/20/2021, 08/10/2020, 07/20/2020 Influenza Vaccine (#1) 2024 , 05/08/2020, 05/11/2019, Additional history exists DTaP/Tdap/Td Vaccine (2 - Td or Tdap) 01/04/2029 01/04/2019 Pneumococcal vaccine 65+ Completed 05/08/2020, 08/2018 Insurance MEDICARE [employer] Address: [facility] [address] [place] [address] Care Teams Mandate Retail Service Merchandiser Relationship Specialty Start Date End Date Unknown, Notinfile PCP - General 01/06/24
--- OUTSIDE RECORDS SUMMARY | 2024-07-14 12:14 | XMS_ITS | Encounter Summary ---
Author Organization [facility] Address [address] [facility] [place] [address] Care Team Providers Care Product Management Analyst Name Role Phone Unavailable Primary Care Provider Unavailabl e Encounter Details Date Type Department Care Team (Late st Contact Info) Description 05/28/2024 Lab Requisition [facility] - Pathology Lab [address] [place] [id number] Jordan Odell MD [address] [place] [address] Localized swelling, mass and lump, neck Social History Tobacco Use Types Packs/Day Years Used Date Smoking Tobacco: Never Assessed Sex and Gender Information Value Date Recorded Sex Assigned at Not on file Gender Identity Not on file Sexual Orientation Not on file documented as of this encounter Plan of Treatment Not on file documented as of this encounter Procedures Procedure Name Priority Date/Time Associated Diagnosis Comments FLOW CYTOMETRY TISSUE PANEL Routine 05/28/2024 9:41 AM RECEIVER DISPATCHER Localized swelling, mass and lump, neck documented in this encounter Results * FLOW CYTOMETRY TISSUE PANEL (05/28/2024 9:41 AM RECEIVER DISPATCHER) Case Report Flow Cytometry ?Case: [id number] ? Authorizing Provider: ??Jordan Odell ? Collected: ? 05/28/2024 09:41 AM ? MD Mauro ? Ordering Location: ? [facility] - ??Received: ?05/28/2024 01:57 PM ? Pathology Lab ? Pathologist: ? Pardeep Cope MD ? Specimen: ?Lymph Node, Left Supraclavicular ? 05/28/2024 4:27 PM [facility] Final Diagnosis Lymph node, flow cytometry: - Mostly non-viable events, too few cells for meaningful analysis 05/28/2024 4:27 PM [facility] Flow Cytometry Interpretation Viability: 0.0% B-cells: no significant population, the rare events present appear kappa light chain restricted; however, due to the very low viability and hypocellularity a firm conclusion cannot be rendered. Tissue sections are pending. T-cells: no significant population A cytospin prepared from the flow cytometry specimen has been reviewed for customer quality engineer purposes. No viable cells are seen. 05/28/2024 4:27 PM [facility] Flow Cytometry Results Differential Result Comment Flow Cell Count /uL 1,100 Total Viability % 0.0 Lymphocytes % 71 Dim CD45 Region % 1 Monocytes % 11 Granulocytes % 18 05/28/2024 4:27 PM [facility] Reason for test Localized swelling, mass and lump, neck 784.2 05/28/2024 4:27 PM [facility] Client Specimen ID # [id number] 05/28/2024 4:27 PM [facility] Number of markers 16 were performed. A-2 Flow CD3 A-4 Flow CD10 A-6 Flow CD20 A-7 Flow CD23 A-12 Flow CD2 A-13 Flow CD4 A-16 Flow CD1a A-3 Flow CD5 A-5 Flow CD19 A-8 Flow CD34 A-9 Flow CD45 A-14 Flow CD7 A-15 Flow CD8 A-17 Flow CD30 A-10 [place]+CD19+ A-11 Lambda+CD19+ 05/28/2024 4:27 PM [facility] Pathologist Location at [facility] 05/28/2024 4:27 PM [facility] Disclaimer Test performed at [facility], [address] [place] [address], [id number]. *The established laboratory minimum viability is 70%. [...] high complexity clinical testing. 05/28/2024 4:27 PM [facility] Embedded Images 4:27 PM [facility] Pathology/Cytolo gy ENTIRE LYMPH NODE / Unknown 05/28/2024 9:41 AM RECEIVER DISPATCHER 05/28/2024 1:57 PM RECEIVER DISPATCHER Jordan Odell MD LAB - PATHO LOGY/CYTOLOGY ORDERABLES [facility] PATHOLOG[facility] LAB [address] [facility] [place] [address], [facility] [phone] documented in this encounter Visit Diagnoses Diagnosis Localized swelling, mass and lump, neck Swelling, mass, or lump in head and neck documented in this encounter
--- OUTSIDE RECORDS SUMMARY | 2024-07-14 12:14 | XMS_ITS | Referral Summary ---
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
--- OUTSIDE RECORDS SUMMARY | 2024-07-14 12:14 | XMS_ITS | Encounter Summary ---
Author Organization [facility] Address [address] [facility] [place] [address] Care Team Providers Care Commercial Collections Specialist Name Role Phone Unavailable Primary Care Provider Unavailabl e Encounter Details Date Type Department Care Team (Late st Contact Info) Description 12/10/2018 Lab Requisition [facility] Care DermPath Lab [address] [facility] [address], [place] [place] [address] Rosetta Espinoza DO [address] [facility] [address] [place] [address] Social History Tobacco Use Types Packs/Day Years Used Date Smoking Tobacco: Never Assessed Sex and Gender Information Value Date Recorded Sex Assigned at Not on file Gender Identity Not on file Sexual Orientation Not on file documented as of this encounter Plan of Treatment Not on file documented as of this encounter Procedures Procedure Name Priority Date/Time Associated Diagnosis Comments DERMATOPATHOLOGY Routine 12/09/2018 12:0 0 AM CDT documented in this encounter Results * DERMATOPATHOLOGY (12/09/2018 12:00 AM CDT) Case Report Dermatopathology Report ? Case: [id number] ? Authorizing Provider: ??Rosetta Espinoza, DO ?? Collected: ? 12/09/2018 12:00 AM ? Pathologist: ? Carolina Degroot MD ? Received: ?12/10/2018 06:48 AM ? Specimens: ?? A) - Skin, right cheek ? B) - Skin, chest ? 9 1:39 PM [facility] DERMATOPATHOLOGY [facility]ORAT[facility] Final Diagnosis Specimen A. SKIN, right cheek: INTRADERMAL MELANOCYTIC NEVUS (D22.39) SEBACEOUS HYPERPLASIA (L73.8) (see microscopic description) Specimen B. SKIN, chest: SOLAR LENTIGO (L81.4) 9 1:39 PM [facility] DERMATOPATHOLOGY [facility]ORAT[facility] Clinical History A: BCC vs [facility] vs IDN B: Lentigo R/O atypia 9 1:39 PM [facility] DERMATOPATHOLOGY [facility]ORAT[facility] Gross Description Specimen A: Received is one formalin filled container labeled with the patient's name and designated right cheek. The specimen consists of a shave biopsy measuring 4x3x1 mm. Jar 0. Specimen B: Received is one formalin filled container labeled with the patient's name and designated chest. The specimen consists of a shave biopsy measuring 7x6x1 mm. Jar 0. 9 1:39 PM [facility] DERMATOPATHOLOGY [facility]ORAT[facility] Microscopic Description Specimen A. SKIN, right cheek: There are nests of cytologically bland melanocytes within the dermis that mature with depth. There are prominent sebaceous gland lobules surrounding a dilated hair follicle. Additional deeper sections were obtained and reviewed. Specimen B. SKIN, chest: There is orthokeratosis. There is a slight increase in epidermal thickness with lentiginous buds of hyperpigmented keratinocytes. The number of melanocytes is only mildly increased. In the dermis, there is basophilic degeneration of elastic fibers. 9 1:39 PM CDT DERMATOPATHOLOGY LABORATORY Disclaimer An external and internal positive and negative controls are appropriate for the histochemical, immunohistochemical and immunofluorescence stain(s) in this case (if any), except where stated explicitly. The performance characteristics of the stain(s) cited in this report were developed and its performance characteristic determined by the Dermatopathology Laboratory at [facility], directed by Dr. Ita Degroot. These tests need not be, and therefore are not, approved by the [place] Food and Drug Administration. The tests are used for clinical purposes. Billing Codes Specimen Charges Stain Charges 64667 66603 1 1 9 1:39 PM CDT DERMATOPATHOLOGY LABORATORY Embedded Images 1:39 PM CDT DERMATOPATHOLOGY LABORATORY Pathology/Cytology TISSUE SPECIMEN FROM SKIN / Unknown 12/09/2018 12/10/2018 6:48 AM CDT Miscellaneous samples (specimen) TISSUE SPECIMEN FROM SKIN / Unknown 12/09/2018 12/10/2018 6:48 AM CDT Rosetta Espinoza DO LAB - PATHOLOGY/C YTOLOGY ORDERABLES DERMATOPATHOLOGY LABORATORY [facility] - Department of Dermatology [address] [facility] [address], [place] 5th [place] [address], [facility] [phone] documented in this encounter Visit Diagnoses Not on filedocumented in this encounter
--- OUTSIDE RECORDS SUMMARY | 2024-07-14 12:14 | XMS_ITS | Patient Health Summary ---
Author Organization [facility] Address [address] [facility] [place] [address] Care Team Providers Care Group Captain Name Role Phone Unavailable Primary Care Provider Unavailabl e Note from [facility],non-owned Affiliates and Associated Physician Practices is amultiple site organization consisting of ambulatory clinics and hospital sitesin [place], [place], [place] and [place]. This disclosure is being madepursuant to the Care Everywhere program and may not contain all information available regarding this patient. Last updated 18.[facility] Social History Tobacco Use Types Packs/Day Years Used Date Smoking Tobacco: Never Assessed Sex and Gender Information Value Date Recorded Sex Assigned at Not on file Gender Identity Not on file Sexual Orientation Not on file Procedures * PATHOLOGY TISSUE(Performed 05/28/2024) Performed for Illness, unspecified * FLOW CYTOMETRY TISSUE PANEL(Performed 05/28/2024) Performed for Localized swelling, mass and lump, neck * DERMATOPATHOLOGY(Performed 12/09/2018) Results * PATHOLOGY TISSUE (05/28/2024 10:13 AM SAP ABAP DEVELOPER) Case Report Surgical Pathology Report ? Case: [id number] ? Authorizing Provider: ??Jordan Odell ? Collected: ? 05/28/2024 10:13 AM ? MD Mauro ? Ordering Location: ? [facility] - ??Received: ?06/02/2024 04:21 PM ? Pathology Lab ? Pathologist: ? Pardeep Cope MD ? Specimen: ?Lymph Node Biopsy ? 06/04/2024 4:09 PM [facility] PATH[facility] LAB Final Diagnosis Left supraclavicular lymph node, biopsy core: - Sclerosis and mixture of T- and B-cells (see microscopic description) 06/04/2024 4:09 PM [facility] PATH[facility] Microscopic Description and Comment The H&E stained core biopsy shows small cores containing some sclerotic areas, but also areas with predominantly small lymphocytes. Sheets of large lymphoid cells, necrosis, or Cedric-Jalen cells are not appreciated. Immunohistochemistry performed at [facility] shows general negativity for CD68, S100, MCK, MSA, and CD34, excluding the possibilities of a histiocytic/Langerhan s cell, epithelial, muscle, or vascular lesion. Vimentin is positive which would be expected. Hematopoietic stains performed at the [facility] Laboratory show a mixture of CD45+,CD3+ [...] issued in an addendum 06/04/2024 4:09 PM [facility] Clinical History Mediastinal mass. 06/04/2024 4:09 PM [facility] Materials Received Received are 15 slide(s) and 1 block labeled [id number] along with a copy of the outside pathology report. [place] [address]. All original materials are returned to the referring institution, along with a copy of our final report. 06/04/2024 4:09 PM [facility] Addendum 1 CD30 and CD15 staining cannot be fully assessed by due to the loss of tissue in deeper sections. No overtly CD30+/CD15+ large cells are appreciated, but a repeat biopsy with larger pieces of tissue is necessary for a diagnosis. 06/04/2024 4:09 PM [facility] Addendum electronically signed by Pardeep Cope MD on 06/04/2024 at 4:09 PM Pathologist Location at [facility] 06/04/2024 4:09 PM [facility] Disclaimer The performance characteristics of all immunohistochemical and indirect immunofluorescence stains (if any) cited in this report were determined by the Histopathology Laboratory of [facility]. Some of these tests were developed by [...] the attending (teaching) pathologist. 06/04/2024 4:09 PM SAP ABAP DEVELOPER [facility] PATHOLOGY LAB Embedded Images 06/04/2024 4:09 PM SAP ABAP DEVELOPER [facility] PATHOLOG[facility] LAB Pathology/Cytolo gy BIOPSY OF LYMPH NODE / Unknown 05/28/2024 10:13 AM SAP ABAP DEVELOPER 06/02/2024 4:21 PM SAP ABAP DEVELOPER Jordan Odell MD LAB - PATHO LOGY/CYTOLOGY ORDERABLES Performing Organization Address [facility]/State/ZIP Co de Phone Number U PATHOLOGY LAB [address] [facility] [address], [facility] [phone] * FLOW CYTOMETRY TISSUE PANEL (05/28/2024 9:41 AM SAP ABAP DEVELOPER) Case Report Flow Cytometry ?Case: [id number] ? Authorizing Provider: ??Jordan Odell ? Collected: ? 05/28/2024 09:41 AM ? MD Mauro ? Ordering Location: ? [facility] - ??Received: ?05/28/2024 01:57 PM ? Pathology Lab ? Pathologist: ? Pardeep Cope MD ? Specimen: ?Lymph Node, Left Supraclavicular ? 05/28/2024 4:27 PM [facility] Final Diagnosis Lymph node, flow cytometry: - Mostly non-viable events, too few cells for meaningful analysis 05/28/2024 4:27 PM [facility] Flow Cytometry Interpretation Viability: 0.0% B-cells: no significant population, the rare events present appear kappa light chain restricted; however, due to the very low viability and hypocellularity a firm conclusion cannot be rendered. Tissue sections are pending. T-cells: no significant population A cytospin prepared from the flow cytometry specimen has been reviewed for quality director purposes. No viable cells are seen. 05/28/2024 4:27 PM [facility] Flow Cytometry Results Differential Result Comment Flow Cell Count /uL 1,100 Total Viability % 0.0 Lymphocytes % 71 Dim CD45 Region % 1 Monocytes % 11 Granulocytes % 18 05/28/2024 4:27 PM [facility] Reason for test Localized swelling, mass and lump, neck 784.2 05/28/2024 4:27 PM [facility] Client Specimen ID # [id number] 05/28/2024 4:27 PM [facility] Number of markers 16 were performed. A-2 Flow CD3 A-4 Flow CD10 A-6 Flow CD20 A-7 Flow CD23 A-12 Flow CD2 A-13 Flow CD4 A-16 Flow CD1a A-3 Flow CD5 A-5 Flow CD19 A-8 Flow CD34 A-9 Flow CD45 A-14 Flow CD7 A-15 Flow CD8 A-17 Flow CD30 A-10 [place]+CD19+ A-11 Lambda+CD19+ 05/28/2024 4:27 PM [facility] Pathologist Location at [facility] 05/28/2024 4:27 PM [facility] PATH[facility] LAB Disclaimer Test performed at [facility], [address] [place] [address], [id number]. *The established laboratory minimum viability is 70%. [...] high complexity clinical testing. 05/28/2024 4:27 PM [facility] Embedded Images 4:27 PM [facility] PATH[facility] LAB Pathology/Cytolo gy ENTIRE LYMPH NODE / Unknown 05/28/2024 9:41 AM SAP ABAP DEVELOPER 05/28/2024 1:57 PM SAP ABAP DEVELOPER Jordan Odell MD LAB - PATHO LOGY/CYTOLOGY ORDERABLES Performing Organization Address [facility]/State/[facility] Co de Phone Number [facility] PATHOLOGY LAB [address] [place] [address]. [place] [address], [facility] [phone] * DERMATOPATHOLOGY (12/09/2018 12:00 AM CDT) Case Report Dermatopathology Report ? Case: [id number] ? Authorizing Provider: ??Rosetta Espinoza, DO ?? Collected: ? 12/09/2018 12:00 AM ? Pathologist: ? Carolina Degroot MD ? Received: ?12/10/2018 06:48 AM ? Specimens: ?? A) - Skin, right cheek ? B) - Skin, chest ? 9 1:39 PM CDT DERMATOPATHOLOGY LABORATORY Final Diagnosis Specimen A. SKIN, right cheek: INTRADERMAL MELANOCYTIC NEVUS (D22.39) SEBACEOUS HYPERPLASIA (L73.8) (see microscopic description) Specimen B. SKIN, chest: SOLAR LENTIGO (L81.4) 9 1:39 PM T DERMATOPATHOLOGY LABORATORY Clinical History A: BCC vs [facility] vs IDN B: Lentigo R/O atypia 9 1:39 PM CDT DERMATOPATHOLOGY LABORATORY Gross Description Specimen A: Received [...] 7x6x1 mm. Jar 0. 9 1:39 PM T DERMATOPATHOLOGY LABORATORY Microscopic Description Specimen A. SKIN, [...] characteristic determined by the Dermatopathology Laboratory at [facility], directed by Dr. Ita Degroot. These tests need not be, and therefore are not, approved by the [place] Food and Drug Administration. The tests are used for clinical purposes. Billing Codes Specimen Charges Stain Charges [id number] 44372 1 1 9 1:39 PM CDT DERMATOPATHOLOGY LABORATORY Embedded Images 9 1:39 PM CDT DERMATOPATHOLOGY LABORATORY Pathology/Cytology TISSUE SPECIMEN FROM SKIN / Unknown 12/09/2018 12/10/2018 6:48 AM CDT Miscellaneous samples (specimen) TISSUE SPECIMEN FROM SKIN / Unknown 12/09/2018 12/10/2018 6:48 AM CDT Rosetta Espinoza DO LAB - PATHOLOGY/C YTOLOGY ORDERABLES DERMATOPATHOLOGY LABORATORY [facility] - Department of Dermatology [address] [place] [address], 5th Floor Lab [address] [place], [place] [address] [place] [address]
== END 2024-07-14 10:59 | disposition home or self-care (01) ==
PROVIDERS: PCP Family Medicine; Visit Provider Family Medicine
DX: C82.91 Follicular lymphoma, unspecified, lymph nodes of head, face, and neck (principal)
CPT/HCPCS: 38505; 76942; 88184; 88305; 88341; 88342; 88360